=== PATIENT | female | born 1960 | race Caucasian/White ===

== ENCOUNTER 2018-10-28 07:14 | Outpatient (CLI) | payer BC ==
--- NOTE | 2018-10-28 09:20 | MRI ---
MRI ABDOMEN WITH AND WITHOUT IV CONTRAST: Date: 10/28/18 HISTORY: Liver lesion, right lobe. FINDINGS: There is a partially exophytic 7.0 x 4.8 x 6.2 cm mass in the posterior segment of the right lobe of the liver, which is T2 hyperintense. There is also a markedly hyperintense focal area in the superome dial aspect of this mass which does not show enhancement on postcontrast images which demonstrate pr ogressive peripheral globular enhancement and centripetal filling. This mass is consistent with a lar ge hemangioma. The remainder of the liver is normal. The spleen, pancreas, adrenal glands, and left kidney are normal. There is a small cyst in the right kidney. No free fluid or lymphadenopathy seen in the abdomen. There is no evidence of aneurysmal dila tation of the abdominal aorta. The bone marrow signal is normal. Bilateral breast implants are presen t. IMPRESSION: Large liver hemangioma. POS: [facility]
== END 2018-10-28 07:15 | disposition home or self-care (01) ==
LOC: BICMRI 07:14
PROVIDERS: ATTEND Internal Medicine
DX: K76.9 Liver disease, unspecified (principal); D18.03 Hemangioma of intra-abdominal structures
CPT/HCPCS: 74183